=== PATIENT | male | born 1930 | race Caucasian/White ===

== ENCOUNTER 2016-09-08 07:15 | Emergency (ER) | payer MEDICARE ==
[~2016-09-08] VITALS: Ht 182.9 cm; Wt 79.5 kg
[2016-09-08] MEDS ORDERED: VITA1TAB22 PO (07:32)
[2016-09-08] MEDS ORDERED: ACET500C4 PO (07:32)
[2016-09-08] MEDS ORDERED: NAPR500T3 PO (07:32)
[2016-09-08] MEDS ORDERED: RISP0.252 PO (07:32)
[2016-09-08] MEDS ORDERED: LORA-192 PO (07:32)
[2016-09-08] MEDS ORDERED: DONE10TA43 PO (07:32)
[2016-09-08] MEDS ORDERED: MEMA10TA20 PO (07:32)
[2016-09-08] MEDS ORDERED: TAMS0.4C32 PO (07:32)
[2016-09-08] MEDS ORDERED: FLUO-125 PO (07:32)
[2016-09-08 07:57] LABS: BASOPHILS % (AUTO) 0.5 % (0.0-2.0); EOSINOPHILS % (AUTO) 2.5 % (1.0-6.0); HEMATOCRIT 36.4 % (41-53); HEMOGLOBIN 12.5 g/dL (13.5-17.5); LYMPHOCYTES # (AUTO) 1.2 K/uL (1.0-4.8); LYMPHOCYTES % (AUTO) 14.5 % (22.0-44.0); MEAN CORPUSCULAR HEMOGLOBIN 34.6 pg (26.0-34.0); MEAN CORPUSCULAR HGB CONC 34.4 G/dL (31.0-37.0); MEAN CORPUSCULAR VOLUME 101 fL (80-100); MONOCYTES # (AUTO) 0.6 K/uL (0.1-1.0); MONOCYTES % (AUTO) 6.7 % (2.0-9.0); NEUTROPHILS # (AUTO) 6.4 K/uL (1.8-7.7); NEUTROPHILS % (AUTO) 75.8 % (40.0-70.0); PLATELET COUNT (AUTO) 173 K/uL (150-450); RED BLOOD CELL COUNT(AUTO) 3.62 MIL/uL (4.50-5.90); WHITE BLOOD COUNT (AUTO) 8.5 K/uL (4.5-11.0)
[2016-09-08 08:00] LABS: RBC MORPHOLOGY COMMENT ABNORMAL RBC MORPH
[2016-09-08 08:08] LABS: CALCIUM, TOTAL 9.3 mg/dL (8.8-10.5); CREATININE 1.18 mg/dL (0.60-1.30)
[2016-09-08 08:14] LABS: ALBUMIN 3.5 g/dL (3.4-5.0); BILIRUBIN,TOTAL 0.6 mg/dL (0.1-1.0); TOTAL PROTEIN, SERUM 6.5 g/dL (6.4-8.2)
[2016-09-08 09:06] LABS: APPEARANCE,URINE CLEAR (CLEAR); GLUCOSE, URINE (UA) NEGATIVE (NEGATIVE); KETONES,URINE TRACE mg/dL (NEGATIVE); LEUKOCYTE ESTERASE ,URINE NEGATIVE (NEGATIVE); OCCULT BLOOD,URINE SMALL (NEGATIVE); PROTEIN,URINE NEGATIVE (NEGATIVE)
[2016-09-08 09:16] LABS: SQUAMOUS EPITHELIAL CELL,UR Few /LPF (None Seen); WBC,URINE 0-2 /HPF (0-5)
[2016-09-08 09:30] VITALS: BP 167/81
== END 2016-09-08 10:01 | disposition home or self-care (01) ==
LOC: EMS 07:20
DX: S01.81XA Laceration without foreign body of other part of head, initial encounter (principal); W19.XXXA Unspecified fall, initial encounter; Y93.89 Activity, other specified; Y92.89 Other specified places as the place of occurrence of the external cause; Y99.8 Other external cause status
CPT/HCPCS: 70450; 93005; 99285